=== PATIENT | male | born 2000 | race Caucasian/White ===

== ENCOUNTER 2019-11-30 17:44 | Emergency (ER) | payer MEDICAID, SELFPAY ==
[2019-11-30 17:45] VITALS: BP 129/68; PULSE 72; RESP 15; TEMP 36.7; O2SAT 99; BMI 27.9
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
[2019-11-30] MEDS: Diphth,Pertuss(Acell),Tet Vac 0.5 ML Vial IM (18:57)
[2019-11-30 20:12] VITALS: RESP 16
== END 2019-11-30 20:13 | disposition home or self-care (01) ==
LOC: ED 18:39
PROVIDERS: Emergency Provider Emergency Medicine
DX: S50.312A Abrasion of left elbow, initial encounter (principal); S70.211A Abrasion, right hip, initial encounter; M79.642 Pain in left hand; V19.40XA Pedal cycle driver injured in collision with unspecified motor vehicles in traffic accident, initial encounter; Y93.55 Activity, bike riding; Y92.9 Unspecified place or not applicable; Y99.9 Unspecified external cause status; Z23 Encounter for immunization
CPT/HCPCS: 73080; 73130; 90471; 90715; 99285

== ENCOUNTER 2022-01-10 20:23 | Emergency (ER) | payer OTHER, MEDICAID, SELFPAY ==
[2022-01-10 20:24] VITALS: BP 134/83; PULSE 94; RESP 16; TEMP 36.8; O2SAT 98; BMI 27.8
--- NOTE | 2022-01-10 20:50 | EDS_ITS ---
HPI History of Present Illness Chief Complaint: Laceration Informant: patient and parent Narrative Narrative: Patient accidentally cut his left ring fingertip at work with a knife. This was accidental. There is bleeding but controlled with pressure. Unknown last tetanus. No numbness or tingling. No decreased function. No other injury. [facility] Medical History (Updated 01/10/22 @ 21:10 by Minna Hernandez) Laceration Home Medications NK 11/30/19 [History Last Taken Unknown] Allergy/AdvReac Type Severity Reaction Status Date / Time No Known Allergies Allergy Verified 01/10/22 20:26 Social History Smoking Status: Never smoker ROS ROS ED Constitutional Constitutional ED: Denies chills or fever(s) Gastrointestinal Gastrointestinal: Denies nausea or vomiting Musculoskeletal Musculoskeletal: Reports other Details: See history of present illness peer Integumentary Reports other Details: See history of present illness peer Neurologic Neurologic: Denies paresthesias or weakness Hematologic/Lymphatic Hematologic/Lymphatic: Denies easy bleeding or easy bruising Allergic/Immunologic Allergic/Immunologic ED: Denies urticaria EXAM Physical Exam Const Vital Signs: 01/10/22 20:24 Temperature 98.3 F Temperature Source Temporal Pulse Rate 94 Respiratory Rate 16 Blood Pressure 134/83 H Blood Pressure Mean 100 Pulse Ox 98 Oxygen Delivery Method Room Air Positive well nourished and well developed General Appearance ED: well developed and NAD HEENT atraumatic Chest Wall inspection of chest normal Resp normal respiratory effort and clear to auscultation bilaterally Extremity Extremity Narrative: There is a flap type laceration over the distal volar tuft of the left ring finger. There is mild oozing but no notable bleeding. This flap has a total peripheral laceration length of approximately 3 cm. The flap is a little bit dusky due to its attachment point being distal. There is no sign of tendinous dysfunction. Neuro oriented x3 and no sensory deficits noted Neuro Narrative: No sensory loss distally. Sensorium / Orientation: alert Motor Exam: strength 5/5 throughout Psych mental status grossly normal Skin Skin Narrative: See above. MDM MDM MDM Narrative Medical decision making narrative: Procedure: Suture laceration: We discussed options and benefits with the patient. We did a digital block with a total of 2 cc of a mixture of 1% lidocaine without epinephrine and 0.5% Marcaine. He achieved excellent anesthesia. The area was scrubbed and cleaned. I placed a turnicot around the finger. We then further scrubbed lifted to flap and examined the wound without any blood. We scrubbed the area. No visible bone or tendon. The flap was sutured back with 9 interrupted 4-0 Ethilon gudino tures with good cosmesis and hemostasis. Turnicot was removed. There was mild oozing from the wound edges and the color improved. I still have some concerns about the survivability of this flap due to its distal attachment. However, I think we have a greater than 50% chance of this healing. We did discuss signs of poor healing as well as infection and reasons to return. I explained that he will likely need the sutures in at least 10 days and closer to 14. Discharge Plan Triage Chief Complaint: Laceration ED Provider: Davonte Allen Dx/Rx/DC Orders Clinical Impression: Laceration of left ring finger Instructions: ED Laceration, Hand: All Closures Prescriptions: No Action NK Primary Care Provider: Care Physician,No Primary Referrals: Alcon Chino MD [Med Staff - [employer]] - 10 Day for suture removal Care Physician,No Primary [Primary Care Provider] - Disposition Disposition: Home, Self Care
[2022-01-10] MEDS: Diphth,Pertuss(Acell),Tet Vac 0.5 ML Vial IM (21:05)
[2022-01-10] MEDS: Bupivacaine Mpf 0.5% 30 ML VIAL INFILT (22:03)
[2022-01-10] MEDS: Lidocaine 1% (20 ml mdv) 20 ML Vial INFILT (22:44)
== END 2022-01-10 22:45 | disposition home or self-care (01) ==
PROVIDERS: Emergency Provider Emergency Medicine; Visit Provider Emergency Medicine
DX: S61.215A Laceration without foreign body of left ring finger without damage to nail, initial encounter (principal); W26.0XXA Contact with knife, initial encounter; Y99.0 Civilian activity done for income or pay; Z23 Encounter for immunization
CPT/HCPCS: 12002; 90715; 99283